=== PATIENT | female | born 1970 | race Two or more races ===

== ENCOUNTER 2019-07-26 13:22 | Inpatient (IN) | payer OTHER ==
[~2019-07-26] VITALS: Ht 160 cm; Wt 103.0 kg
[~2019-07-26 13:22] MED LIST: CLONAZEPAM0.5 MG; TEMAZEPAM7.5 MG; WELLBUTRIN XL300 MG
[2019-07-26] MEDS ORDERED: HYDROCHLORO PO (14:11)
[2019-07-26] MEDS ORDERED: COZAAR100 MG PO (14:12)
[2019-07-26] MEDS ORDERED: TYLENOL325 MG PO (14:12)
[2019-07-26] MEDS ORDERED: OMEPRAZOLE MAGN20 MG PO (14:13)
[2019-07-26] MEDS ORDERED: VITB PO (14:13)
[2019-07-26] MEDS ORDERED: ZANAFLEX4 M1 PO (14:14)
[2019-07-26] MEDS ORDERED: SULINDAC200 MG PO (14:14)
[2019-07-26] MEDS ORDERED: MAGNESIUM400 MG PO (14:15)
[2019-07-26] MEDS ORDERED: MELATONIN5 M1 PO (14:15)
[2019-07-26] MEDS ORDERED: VITAMIN C100 MG PO (14:16)
[2019-07-28] MEDS ORDERED: MICROZIDE12.5 MG PO (07:28)
[2019-07-28] MEDS ORDERED: VITAMIN B COMP1 EAC1 PO (07:29)
[2019-07-28] MEDS ORDERED: VITAMIN C100 MG PO (07:42)
[2019-07-28] MEDS ORDERED: PERCOCET 5-3251 EACH PO (13:53)
[2019-07-28] MEDS ORDERED: CLONAZEPAM0.5 MG PO (13:53)
[2019-07-28] MEDS ORDERED: COLACE100 MG PO (13:53)
[2019-07-28] MEDS ORDERED: MEDROLPACK PO (13:53)
== END 2019-07-29 12:47 | disposition home or self-care (01) | DRG 473 ==
LOC: EDSTATUS 13:30 → ADM 13:30 → SURH 07-28 05:10 → O/R 07-28 05:10 → SURH 07-28 13:30
PROVIDERS: ADMIT Orthopaedic Surgery Orthopaedic Surgery of the Spine
PROC: 0RB30ZZ Excision of Cervical Vertebral Disc, Open Approach (ICD-10-PCS; 2019-07-28)
PROC: 0RG20A0 Fusion of 2 or more Cervical Vertebral Joints with Interbody Fusion Device, Anterior Approach, Anterior Column, Open Approach (ICD-10-PCS; principal; 2019-07-28 14:30)
DX: M50.022 Cervical disc disorder at C5-C6 level with myelopathy (principal); I10 Essential (primary) hypertension